=== PATIENT | female | born 1985 | race African-American/Black ===

== ENCOUNTER 2018-10-17 10:09 | Emergency (ER) | payer OTHER ==
[2018-10-17 10:45] VITALS: BP 129/54; PULSE 71; TEMP 98.4; BMI 45.4
--- NOTE | 2018-10-17 11:47 | PDOC ---
History of Present Illness - General Chief Complaint: Cold Symptoms Stated Complaint: SICK Time Seen by Provider: 10/17/18 11:15 History Source: Patient Exam Limitations: Clinical Condition - History of Present Illness Initial Comments: 10/17/18 11:43 Patient with no significant past medical history present with complaint of 4 day history of runny nose, dry cough, nasal congestion, sinus pain and sore throat. Patient denies fever, chills, nausea or vomiting. Patient denies diarrhea. Patient denies any other symptoms Timing/Duration: other (4 days) Past History - Past Medical History Allergies/Adverse Reactions: Allergies Allergy/AdvReac Type Severity Reaction Status Date / Time No Known Allergies Allergy Verified 10/17/18 10:42 Home Medications: Ambulatory Orders Benzonatate [Tessalon Pearls -] 100 mg PO TID PRN #21 capsule 10/17/18 Ipratropium Hydro 2 spray NS BID PRN #1 spray 10/17/18 Loratadine 10 mg PO DAILY #10 capsule 10/17/18 - Surgical History Abdominal Surgery: Yes Cholecystectomy: ([facility].) - Suicide/Smoking/Psychosocial Hx Smoking History: Current some day smoker Have you smoked in the past 12 months: Yes Number of Cigarettes Smoked Daily: 2 If you are a former smoker, when did you quit?: 06/23/15 Information on smoking cessation initiated: Yes Hx Alcohol Use: No Drug/Substance Use Hx: No Substance Use Type: None Review of Systems - Review of Systems Able to Perform ROS?: Yes Is the patient limited Greek proficient: No Constitutional: No: Chills, Fever, Malaise HEENTM: Yes: Symptoms Reported, See HPI, Nose Congestion, Throat Pain. No: Eye Pain, Blurred Vision, Tearing, Recent change in vision, Double Vision, Cataracts , Ear Pain, Ocular Prothesis, Ear Discharge, Nose Pain, Tinnitus, Nose Bleeding , Hearing Loss, Throat Swelling, Mouth Pain, Dental Problems, Difficulty Swallowing, Mouth Swelling, Other Respiratory: Yes: Symptoms reported, See HPI, Cough. No: Orthopnea, Shortness of Breath, SOB with Exertion, SOB at Rest, Stridor, Wheezing, Productive cough, Hemoptysis, Other Cardiac (ROS): No: Symptoms Reported, See HPI, Chest Pain, Edema, Irregular Heart Rate, Lightheadedness, Palpitations, Syncope, Chest Tightness, Other ABD/GI: No: Nausea, Vomiting All Other Systems: Reviewed and Negative *Physical Exam - Vital Signs Last Vital Signs Temp Pulse Resp BP Pulse Ox 98.4 F 71 18 129/54 L 99 10/17/18 10:25 10/17/18 10:25 10/17/18 10:25 10/17/18 10:25 10/17/18 10:25 - Physical Exam Comments: 10/17/18 11:45 GENERAL: Well developed, well nourished. Awake and alert. No acute distress. HEENT: No pharyngeal erythema. Normocephalic, atraumatic. PERRLA, EOMI. No conjunctival pallor. Sclera are non-icteric. Moist mucous membranes. Oropharynx is clear. NECK: Supple. Full ROM. CARDIOVASCULAR: Regular rate and rhythm. No murmurs, rubs, or gallops. Distal pulses are 2+ and symmetric. PULMONARY: No evidence of respiratory distress. Lungs clear to auscultation bilaterally. No wheezing, rales or rhonchi. ABDOMINAL: Soft. Non-tender. Non-distended. No rebound or guarding. No organomegaly. Normoactive bowel sounds. MUSCULOSKELETAL Normal range of motion at all joints. EXTREMITIES: No cyanosis. SKIN: Warm and dry. Normal capillary refill. No rashes. No jaundice. NEUROLOGICAL: Alert, awake, appropriate. Gait is normal without ataxia. PSYCHIATRIC: Cooperative. Good eye contact. Appropriate mood General Appearance: Yes: Nourished, Appropriately Dressed. No: Apparent Distress Moderate Sedation - Procedure Monitoring Vital Signs: Procedure Monitoring Vital Signs Temperature 98.4 F 10/17/18 10:25 Pulse Rate 71 10/17/18 10:25 Respiratory Rate 18 10/17/18 10:25 Blood Pressure 129/54 L 10/17/18 10:25 O2 Sat by Pulse Oximetry (%) 99 10/17/18 10:25 Medical Decision Making - Medical Decision Making 10/17/18 11:46 Patient with no significant past medical history present with complaint of 4 day history of runny nose, dry cough, nasal congestion, sinus pain and sore throat. Patient denies fever, chills, nausea or vomiting. Clinical exam significant for bilateral nasal congestion otherwise unremarkable. Lungs clear to auscultation bilateral. Normal cardiac exam. Patient symptoms viral URI. Rapid strep ordered to rule out strep pharyngitis 10/17/18 11:58 Rapid strep negative. Patient is stable for outpatient treatment for viral URI with PCP follow-up *DC/Admit/Observation/Transfer Diagnosis at time of Disposition: Cough URI (upper respiratory infection) Qualifiers: URI type: unspecified viral URI Qualified Code(s): J06.9 - Acute upper respiratory infection, unspecified - Discharge Dispostion Disposition: HOME Condition at time of disposition: Stable Decision to Admit order: No - Prescriptions Prescriptions: Benzonatate [Tessalon Pearls -] 100 mg PO TID PRN #21 capsule PRN Reason: Cough Ipratropium Hydro 2 spray NS BID PRN #1 spray PRN Reason: nasal congestion Loratadine 10 mg PO DAILY #10 capsule - Referrals Referrals: Ortiz Osuna MD [Primary Care Provider] - - Patient Instructions Printed Discharge Instructions: DI for Viral Upper Respiratory Infection -- Adult Additional Instructions: Your rapid strep was negative. Take medications as prescribed. Increase fluid intake. Follow-up with primary care - Post Discharge Activity Forms/Work/School Notes: Back to Work
== END 2018-10-17 12:07 | disposition home or self-care (01) ==
LOC: JERFT 10:09
DX: J06.9 Acute upper respiratory infection, unspecified (principal)
CPT/HCPCS: 87070; 87077; 87880; 99281-25

== ENCOUNTER 2020-12-12 19:14 | Emergency (ER) | payer OTHER ==
[2020-12-12 19:27] VITALS: BP 116/69; PULSE 89; TEMP 98.7; BMI 46.9
== END 2020-12-12 22:18 | disposition home or self-care (01) ==
LOC: JER 19:14
DX: U07.1 COVID-19 (principal); R50.9 Fever, unspecified
CPT/HCPCS: 99283-25; C9803; U0003

== ENCOUNTER 2024-10-20 18:27 | Emergency (ER) | payer OTHER ==
[2024-10-20 18:38] VITALS: BP 142/93; PULSE 73; RESP 20; TEMP 98.2; BMI 41.1
[2024-10-20] MEDS ORDERED: guaiFENesin/D-METHORPHAN HB 10 ML UNIT-DOSE CUPS ONE (19:34)
[2024-10-20] MEDS ORDERED: predniSONE 20 MG TABLET (UD) ONE (19:35)
[2024-10-20] MEDS: guaiFENesin/D-METHORPHAN HB 10 ML UNIT-DOSE CUPS PO ONE (19:43)
[2024-10-20] MEDS: predniSONE 20 MG TABLET (UD) PO ONE (19:43)
== END 2024-10-20 19:51 | disposition home or self-care (01) ==
LOC: JERFT 18:27
DX: J40 Bronchitis, not specified as acute or chronic (principal); R05.9 Cough, unspecified
CPT/HCPCS: 71046-TC-FY; 99283-25

== ENCOUNTER 2025-02-06 10:15 | Emergency (ER) | payer OTHER ==
[2025-02-06 10:29] VITALS: BP 162/92; PULSE 81; RESP 20; TEMP 98.1; BMI 52.9
== END 2025-02-06 11:15 | disposition home or self-care (01) ==
LOC: JERFT 10:15
DX: H10.11 Acute atopic conjunctivitis, right eye (principal)
CPT/HCPCS: 99283-25